=== PATIENT | female | born 1990 | race African-American/Black ===

== ENCOUNTER 2021-09-20 09:35 | Outpatient (CLI) | payer BC, SELFPAY ==
--- NOTE | ~2021-09-20 | MR_ITS ---
EXAMINATION: MR brain/brain stem wo con EXAM DATE: 09/20/2021 10:11 INDICATION: Generalized headaches 5-9 years. TECHNIQUE: Magnetic resonance imaging (MRI) of the brain/brain stem obtained without contrast. Maria De Jesus al T1, axial diffusion, gradient echo (T2*), T1, T2, FLAIR sequences obtained. There is no prior st udy for comparison. FINDINGS: There are no areas of restricted diffusion to suggest acute infarction. There is no acute hemorrhage seen on the T2*, a hemosiderin sensitive sequence. No intraparenchymal brain mass. The ve ntricles are normal in size. There are no extra-axial collections. Flow voids are seen in the cereb ral arteries on the T2-weighted sequences consistent with their expected patency. The orbits are unr emarkable. Soft tissue is unremarkable. IMPRESSION: 1. Normal brain MRI examination. Reviewed, dictated and finalized at location . [employer]EL[employer]
--- NOTE | ~2021-09-20 | XR_ITS ---
XR lumbar spine 2-3V DATE: 09/20/2021 10:32 INDICATION: Low back pain TECHNIQUE: AP, lateral, coned lateral lumbosacral views COMPARISON: None FINDINGS: There is mild dextroscoliosis of the thoracic spine. There is minimal levoscoliosis of the lumbar spine. No fracture or bone destruction is evident. Included lower thoracic and lumbar pedicles are intact. L umbar and lumbosacral interspaces are well preserved. The sacroiliac joints are intact. IMPRESSION: Minimal levoscoliosis of the lumbar spine Reviewed, dictated and finalized at location B. LEAD
== END 2021-09-20 09:36 ==
PROVIDERS: PCP Emergency Medicine; Visit Provider Emergency Medicine
DX: R51.9 Headache, unspecified (principal); M54.50 Low back pain, unspecified; M41.9 Scoliosis, unspecified
CPT/HCPCS: 70551; 72100

== ENCOUNTER 2022-01-19 16:36 | Observation (INO) | payer BC, SELFPAY ==
--- NOTE | ~2022-01-19 | US_ITS ---
EXAMINATION: US abdomen complete DATE: 01/21/2022 08:01 INDICATION: Acute abdominal pain. TECHNIQUE: Multiple grayscale and Doppler ultrasound images of the abdomen were obtained. COMPARISON: CT abdomen and pelvis 01/19/2022 FINDINGS: The visualized portions of the head, body, and tail of the pancreas are normal. The liver i s normal without focal lesion. There is normal flow in main portal vein. The gallbladder is normal in size. No gallstones or gallbladder wall thickening. There was no sonographic Diaz sign. The common duct is normal and measures 6 mm. The kidneys are normal in size. The spleen is normal in size. Abdo kathy aorta is normal in caliber. Inferior vena cava is normal. IMPRESSION: 1. Normal complete abdomen ultrasound. Reviewed, dictated and finalized at location A.
--- NOTE | ~2022-01-19 | CT_ITS ---
EXAMINATION: CT abdomen pelvis wo con DATE: 01/19/2022 17:37 INDICATION: epigastric pain, elevated lipase TECHNIQUE: Computed tomography (CT) of the abdomen and pelvis was performed without intravenous contr ast. Automated exposure control and iterative reconstruction technique were employed. The dose-length product was 540.03 mGy-cm. COMPARISON: 08/11/2017. FINDINGS: Lower thorax: Unremarkable Liver: Normal. Biliary/Gallbladder: Gallbladder is normal. No bile duct dilation. Pancreas: No mass or duct dilation. Spleen: Normal. Adrenals:No mass. Kidneys: No mass, stone, or hydronephrosis. GI tract: No small or large bowel dilation. Normal appendix. Fluid-filled colon. Mesentery/Peritoneum: No ascites, mass, or free air. Retroperitoneum: No mass. Pelvis: Pelvic organs are within normal limits. Soft Tissues: Soft tissues and body wall unremarkable. Bones: No acute osseous finding. IMPRESSION: Fluid-filled colon, as can be seen with diarrheal illness. Otherwise no acute abdominopelvic process detected. No CT evidence of pancreatitis in this noncontrast examination. Reviewed, dictated and finalized at location K. IMPRESSION: Fluid-filled colon, as can be seen with diarrheal illness. Otherwise no acute a bdominopelvic process detected. No CT evidence of pancreatitis in this noncontr ast examination.
[2022-01-19 16:44] VITALS: BP 121/80; PULSE 80; RESP 16; TEMP 36.1; O2SAT 100
[2022-01-19 17:09] LABS: Basophils Percent Auto 0.3 % (0.2-1.2); Eosinophils Percent Auto 0.1 % (0-4.4); Hematocrit 46.4 % (37.0-47.0); Hemoglobin 14.9 g/dL (12.0-15.0); Immature Granulocyte Absolute 0.02 K/mm3 (0.00-0.031); Immature Granulocyte Percent A 0.3 % (0-0.5); Lymphocytes Absolute Auto 0.48 K/mm3 (0.9-3.2); Lymphocytes Percent Auto 6.3 % (18.3-44.2); Mean Corpuscular HGB Conc 32.1 g/dl (32-36); Mean Corpuscular Volume 90.4 fl (80-100); Monocytes Absolute Auto 0.3 K/mm3 (0.1-0.6); Monocytes Percent Auto 3.3 % (2.6-8.5); Neutrophils Absolute Auto 6.8 K/mm3 (1.3-6.7); Neutrophils Percent Auto 89.7 % (45.5-73.1); Platelet Count Result 375 k/mm3 (150-375); Red Blood Count 5.13 M/mm3 (4.2-5.4); Red Cell Distribution Width 13.1 % (11.5-14.5); White Blood Count 7.6 K/mm3 (4.5-10.0)
[2022-01-19 17:19] LABS: Alanine Aminotransferase 19 U/L (6-35); Albumin Level 5.2 g/dL (3.5-5.1); Alkaline Phosphatase 82 U/L (38-126); Anion Gap 9 mmol/L (8-16); Aspartate Amino Transferase 31 U/L (14-36); Bilirubin,Total 0.4 mg/dL (0.2-1.3); Blood Urea Nitrogen 10 mg/dL (7-17); Calcium 9.4 mg/dL (8.4-10.2); Carbon Dioxide 25 mmol/L (22-30); Chloride 106 mmol/L (98-107); Estimated CRCL calculation 85 ml/min; Estimated Glomerular Filt Rate > 60; Glucose 103 mg/dL (65-110); Lipase 981 U/L (23-300); Potassium 3.9 mmol/L (3.4-5.0); Sodium 140 mmol/L (137-145)
[2022-01-19 17:22] LABS: Appearance Urine Clear (Clear); Bilirubin Urine Negative (Negative); Blood Urine 3+ (Negative); Color Urine Yellow (Yellow); Glucose Urine UA Negative (Negative); Ketones Urine Trace mg/dL (Negative); Leukocyte Esterase Ur Negative LEU/UL (Negative); Nitrate Urine Negative (Negative); Protein Urine 1+ mg/dL (Negative); Specific Grav Ur >= 1.030 (1.001-1.035); Urobilinogen Urine 0.2 mg/dL (<2.0); pH Urine 5.5 (5.0-9.0)
[2022-01-19 17:27] LABS: Add Urine Microscopic? YES; Mucus Urine Few /lpf; Squamous Epithelial Cell Urine Rare /hpf (Few); WBC Urine 0-3 /hpf
--- NOTE | 2022-01-19 17:28 | ED.NAVMDI ---
HPI - Nausea/Vomiting/Diarrhea General Chief complaint: Nausea/Vomiting/Diarrhea Stated complaint: vomiting and diarrhea, abd pain Time Seen by Provider: 01/19/22 16:48 Source: patient Mode of arrival: ambulatory Limitations: no limitations History of Present Illness HPI Narrative: This is a 31 year old female that presents to the ER for epigastric abdominal pain noted today. Associated with nausea and vomiting. Also reports diarrhea. Denies fever. Related Data Home Medications Medication Instructions Recorded Confirmed rttjakj-dlmgxhdjh-uxod tablet tablet PO 02/02/20 docosahexaenoic acid 200 mg mg PO 02/02/20 capsule ( DHA) norethindrone (contraceptive) 0.35 0.35 mg PO DAILY 02/02/20 mg tablet Allergies Allergy/AdvReac Type Severity Reaction Status Date / Time No Known Allergies Allergy Unverified 02/02/20 16:54 Review of Systems Review of Systems: CONSTITUTIONAL: Denies fever GASTROINTESTINAL: Reports abdominal pain, nausea, vomiting, and diarrhea. GENITOURINARY: Denies dysuria All systems reviewed & are unremarkable except as noted in HPI and below PMFSH Past Medical History Medical History (Updated 01/19/22 @ 18:35 by Annita Otto PA-C) PIH ( induced hypertension) Family History Family History Other Depression Diabetes mellitus Hypertension Social History Social History Smoking status: Never smoker Second hand tobacco smoke exposure: No Alcohol intake: never Substance use: never Substance use type: does not use Gender identity (if verbalized by the patient): Female Exam Narrative: GENERAL: Well-appearing, well-nourished, and in no acute distress. HEAD: Normocephalic, atraumatic. EYES: EOMI. CHEST: Clear to auscultation. No respiratory distress. No wheezes rales or rhonchi HEART: Regular rate and rhythm. No murmur heard. Normal peripheral pulses. ABDOMEN: Soft, nondistended, normal active bowel sounds. Mild tenderness to palpation in the epigastrium, without guarding. No CVA tenderness EXTREMITIES: Normal range of motion. No edema. SKIN: Warm, dry, no rash. NEURO: No focal deficits. Alert and oriented x3. PSYCH: Normal mood and affect Course Consultations Consultation #1: Spoke with hospitalist about patient and work-up who accepts admission Date: 01/19/22 Vital Signs Vital signs: Vital Signs Temperature 96.9 F L 01/19/22 16:44 Pulse Rate 80 01/19/22 16:44 Respiratory Rate 16 01/19/22 16:44 Blood Pressure 121/80 01/19/22 16:44 Pulse Oximetry 100 01/19/22 16:44 Oxygen Delivery Room Air 01/19/22 16:44 Temperature 96.9 F L 01/19/22 16:44 Pulse Rate 88 01/19/22 18:29 Respiratory Rate 16 01/19/22 16:44 Blood Pressure 121/79 01/19/22 18:29 Pulse Oximetry 100 01/19/22 16:44 Oxygen Delivery Room Air 01/19/22 16:44 MDM - Nausea/Vomiting/Diarrhea MDM Narrative Medical decision making narrative: Patient presents to the emergency department for epigastric pain, nausea and vomiting. She is afebrile and nontoxic-appearing. Her vitals are stable. CBC and metabolic panel without concerning findings. Lipase is noted to be elevated to 981. UA without evidence of infection. Bedside test is negative. CT scan of the abdomen pelvis does not show any evidence of pancreatitis. Exam was non contrast as there is a current shortage. Patient and family updated on case findings. Patient will be admitted for further management. Spoke with hospitalist about patient and work-up who accepts admission Lab Data Attestation: I reviewed the patient's lab results. Result diagrams: 01/19/22 17:04 01/19/22 17:04 Labs: Lab Results 01/19/22 01/19/22 01/19/22 Range/Units 17:04 17:04 17:15 WBC 7.6 (4.5-10.0) K/mm3 RBC 5.13 (4.2-5.4) M/mm3 Hgb 14.9
[2022-01-19] MEDS: ONDANSETRON INJ 4 MG/2 ML VIAL IV PUSH (17:39)
[2022-01-19] MEDS: SODIUM CHLORIDE 0.9% IV 1,000 ML 999 ML IV CONT (17:40)
[2022-01-19] MEDS: FAMOTIDINE 20 MG/2 ML VIAL IV PUSH (17:40)
[2022-01-19 18:24] VITALS: BP 108/70; PULSE 72
[2022-01-19 18:24] LABS: Influenza A QL RT-PCR Negative (Negative); Influenza B QL RT-PCR Negative (Negative); SARS-CoV-2 RNA PCR Negative
[2022-01-19 18:26] VITALS: BP 113/95; PULSE 75
[2022-01-19 18:29] VITALS: BP 121/79; PULSE 88
[2022-01-19] MEDS: MORPHINE SULFATE (*CRX) 4 MG/ML INJ IV PUSH (18:47)
[2022-01-19 18:48] VITALS: BP 112/75; PULSE 62; RESP 18; O2SAT 99
--- NOTE | 2022-01-19 20:00 | PM.IMHP ---
H&P: HPI History of Present Illness Date/Time: 01/19/22 20:00 Chief Complaint: Abdominal pain and diarrhea. Narrative: This is a very pleasant previously healthy 31-year-old female who presented to the emergency department from home for evaluation of abdominal pain and diarrhea. She has felt more fatigued than usual the last several days and she has been napping in the afternoons which is very unlike her. Last evening after dinner (turkey and bengali rice with ice cream for desert), she developed aching pain in the upper abdomen and periumbilical region. It does not seem to radiate and she gives no aggravating or alleviating factors. She started to feel nauseated around the same time and she has been vomiting and having diarrhea almost every hour. Lipase was elevated at just under 1000 though no findings of pancreatitis were noted on CT although it was a non-contrast study due to a contrast shortage. The colon was fluid filled but no other findings were noted. No one in her family has had similar symptoms and she has no known sick contacts. She also denies recent travel and recent antibiotic use. She denies personal and family history of pancreatitis. She also denies fever, chills, sweats, hematemesis, melena, and hematochezia. No GERD or history of ulcers. Review of Systems Review of Systems: Tweleve systems were reviewed and are negative except for as per HPI. [facility] Past Medical History Medical History (Updated 01/19/22 @ 23:34 by Ely Harris PA-C) induced hypertension Surgical History Surgical History (Updated 01/19/22 @ 23:26 by Ely Harris PA-C) No history of previous surgery Family History Family History Mother Diabetes mellitus Sibling Diabetes mellitus Other Depression Hypertension Social History Social History (Updated 01/19/22 @ 23:27 by Ely Harris PA-C) Social History: The patient lives with her and 2 young children in [place]. 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 No alcohol, tobacco, or illicit substance abuse. She designates her as her surrogate decision maker and she wishes to be a full code. Spiritual care concerns: No Meds Home Medications and Allergies Home Medications Medication Instructions Recorded Confirmed Type xsyudhg-radcvrhre-maid 1 tablet PO DAILY 01/19/22 01/19/22 History lisdexamfetamine 40 mg capsule 40 mg DAILY 01/19/22 01/19/22 History (Seth) Allergies Allergy/AdvReac Type Severity Reaction Status Date / Time No Known Allergies Allergy Unverified 02/02/20 16:54 Vital Signs Vital Signs - 24 hr 01/19/22 16:44 01/19/22 18:24 01/19/22 18:26 Temperature 96.9 F L Pulse Rate 80 72 75 Respiratory Rate 16 Blood Pressure 121/80 108/70 113/95 H Pulse Oximetry 100 Oxygen Delivery Room Air 01/19/22 18:29 01/19/22 18:48 01/19/22 22:00 Temperature 97.2 F L Pulse Rate 88 62 57 L Respiratory Rate 18 21 H Blood Pressure 121/79 112/75 127/62 Pulse Oximetry 99 100 Oxygen Delivery Exam Narrative: General: Well-developed female supine in bed in no distress. Weight: 77 kg. BMI: 25.1. HEENT: Normocephalic, atraumatic. PERRL, EOMI. Sclerae anicteric. Tacky mucous membranes. Neck: Supple. Respiratory: Lungs are clear to auscultation bilaterally. Cardiovascular: Regular rate and rhythm with S1-S2. Gastrointestinal: Abdomen is soft and nondistended with positive bowel sounds. She is tender to palpation in the left upper quadrant. No guarding or rebound tenderness. Skin: Warm and dry. No rash or lesions on limited exam. Extremities: No cyanosis, clubbing, or edema. Radial and pedal pulses intact. Neurological: Alert. Cranial nerves 2-12 are grossly intact. No gross focal deficits to casual conversation. Psychiatric: Pleasant and cooperative with normal mood and affect. Judgment and insight intact. H&P: Results Labs L
[2022-01-19 20:31] VITALS: BMI 25.9
--- NOTE | 2022-01-19 20:39 | ADMGEN ---
This patient, Kezia Rizo, was admitted to 2 Medical Room 260-01. Patient/family oriented to hospital policies and general routines including ID bracelet, bed and alarms, visiting hours, pain management, procedures, bathroom and other care routines, personal items, smoking policy, room service/diet, and visiting hours. Information on how to activate the Rapid Response Team has been discussed. Patient/Family are encouraged to report perceived risks to care and to ask questions if they do not understand what they are told or what they should do.
[2022-01-19 22:00] VITALS: BP 127/62; PULSE 57; RESP 21; TEMP 36.2; O2SAT 100
[2022-01-19 22:03] VITALS: BMI 25.0
[2022-01-19] MEDS: SODIUM CHLORIDE 0.9% IV 1,000 ML 125 ML IV CONT (22:29)
[2022-01-20 05:14] LABS: Hemoglobin 11.9 g/dL (12.0-15.0); Mean Corpuscular HGB Conc 32.2 g/dl (32-36); Mean Corpuscular Hemoglobin 29.1 pg (26-34); Mean Corpuscular Volume 90.5 fl (80-100); Platelet Count Result 289 k/mm3 (150-375); Red Blood Count 4.09 M/mm3 (4.2-5.4); Red Cell Distribution Width 13.1 % (11.5-14.5); White Blood Count 5.2 K/mm3 (4.5-10.0)
[2022-01-20 05:28] LABS: Alanine Aminotransferase 16 U/L (6-35); Albumin Level 3.6 g/dL (3.5-5.1); Alkaline Phosphatase 55 U/L (38-126); Anion Gap 4 mmol/L (8-16); Aspartate Amino Transferase 26 U/L (14-36); Bilirubin,Total 0.3 mg/dL (0.2-1.3); Blood Urea Nitrogen 7 mg/dL (7-17); Calcium 7.7 mg/dL (8.4-10.2); Carbon Dioxide 25 mmol/L (22-30); Chloride 107 mmol/L (98-107); Estimated CRCL calculation 94 ml/min; Estimated Glomerular Filt Rate > 60; Glucose 99 mg/dL (65-110); Lipase 49 U/L (23-300); Magnesium 1.8 mg/dL (1.6-2.3); Potassium 3.2 mmol/L (3.4-5.0); Sodium 136 mmol/L (137-145)
[2022-01-20 06:00] VITALS: BP 102/71; PULSE 66; RESP 21; TEMP 36.6; O2SAT 100
[2022-01-20] MEDS: HYDROmorphone HCL INJ (*CRX) 1 MG/ML SYR IV PUSH (06:45)
[2022-01-20] MEDS: SODIUM CHLORIDE 0.9% IV 1,000 ML 125 ML IV CONT ×2 (06:46→17:11)
[2022-01-20] MEDS: POTASSIUM CHLORIDE 20 MEQ TABLET 40 MEQ PO (07:54)
[2022-01-20] MEDS: ONDANSETRON INJ 4 MG/2 ML VIAL IV PUSH ×3 (08:04→19:59)
--- NOTE | 2022-01-20 08:53 | PM.IMPN ---
Progress Note: A&P Assessment and Plan (1) Pancreatitis: Code(s): K85.90 - Acute pancreatitis without necrosis or infection, unspecified Status: Acute Assessment and Plan: Lipase is elevated at just under 1000 but no evidence of pancreatitis on CT though it was a non-contrast study. Diffuse tenderness to right upper and left upper quadrant. Lipase trended down to WNL patient was able to trial clear liquid diet and advance to full liquid, continue to advance diet as tolerated. continue to provide IV fluid resuscitation. Antiemetics and analgesics as needed. (2) Dehydration: Code(s): E86.0 - Dehydration Status: Acute Assessment and Plan: Secondary to vomiting and diarrhea. Continue IV fluid rehydration. (3) Vomiting and diarrhea: Code(s): R11.10 - Vomiting, unspecified; R19.7 - Diarrhea, unspecified Status: Acute Assessment and Plan: She may very well have a viral gastroenteritis that is causing the mild elevation in lipase. continue with supportive care. No indication for antibiotics at this time. Subjective Date/time seen: 01/20/22 08:53 Interval history: Patient reports that she still has diffuse abdominal pain. Continues to receive aggressive IV fluids and pain medications. Urine output WNL. Heart rate, blood pressure and temperature WNL. Patient does not have a leukocytosis. she currently reports bowel movements have improved. No stool culture obtained by RNs. Patient's potassium was 3.2 this morning. She received 40 mEq of Klor-Con. lipase down trended to 49. Discussed with the patient about possible discharge. She was a bit apprehensive And reported continued diffuse abdominal pain. Discussed trialing full liquid diet and advancing as tolerated Exam Narrative: General: Well-developed female supine in bed in no distress. Weight: 77 kg. BMI: 25.1. HEENT: Normocephalic, atraumatic. PERRL, EOMI. Sclerae anicteric. Tacky mucous membranes. Neck: Supple. Respiratory: Lungs are clear to auscultation bilaterally. Cardiovascular: Regular rate and rhythm with S1-S2. Gastrointestinal: Abdomen is soft and nondistended with positive bowel sounds. mild tenderness with palpation to abdomen, diffuse to the left and right upper quadrant. No guarding or rebound tenderness. Skin: Warm and dry. No rash or lesions on limited exam. Extremities: No cyanosis, clubbing, or edema. Radial and pedal pulses intact. Neurological: Alert. Cranial nerves 2-12 are grossly intact. No gross focal deficits to casual conversation. Psychiatric: Pleasant and cooperative with normal mood and affect. Judgment and insight intact. Objective Data Vital Signs Vital Signs: Vital Signs - 24 hr 01/19/22 16:44 01/19/22 18:24 01/19/22 18:26 Temperature 96.9 F L Pulse Rate 80 72 75 Respiratory Rate 16 Blood Pressure 121/80 108/70 113/95 H Pulse Oximetry 100 Oxygen Delivery Room Air 01/19/22 18:29 01/19/22 18:48 01/19/22 22:00 Temperature 97.2 F L Pulse Rate 88 62 57 L Respiratory Rate 18 21 H Blood Pressure 121/79 112/75 127/62 Pulse Oximetry 99 100 Oxygen Delivery 01/20/22 06:00 Temperature 97.9 F Pulse Rate 66 Respiratory Rate 21 H Blood Pressure 102/71 Pulse Oximetry 100 Oxygen Delivery Intake/Output Intake/Output: Intake & Output 01/17/22 01/18/22 01/19/22 01/20/22 23:59 23:59 23:59 23:59 Intake Total 1100 1250 Output Total 300 Balance 1100 950 Meds/Results Medications: Active Medications Generic Name Dose Route Start Last Admin Trade Name Freq PRN Reason Stop Dose Admin Acetaminophen 1,000 mg in 100 mls @ 400 mls/hr 01/19/22 18:40 01/20/22 02:54 Ofirmev 1,000 Mg Ivpb IVPB 01/20/22 18:39 Infused Q6H PRN Infusion Mild Pain (1-3) or Fever Sodium Chloride 1,000 mls @ 125 mls/hr 01/19/22 18:40 01/20/22 06:46 Normal Saline Iv IV CONT 125 mls/hr .Q8H MARLY Administration Ond
--- NOTE | 2022-01-20 09:09 | PM.DS ---
DS: Admitting Diagnosis Discharge Date 01/20/2022 Admitting Diagnosis Acute pancreatitis without necrosis or infection Acute abdominal pain Intractable nausea and vomiting DS: Discharge Diagnosis Discharge Diagnosis (1) Pancreatitis: Code(s): K85.90 - Acute pancreatitis without necrosis or infection, unspecified Status: Acute Assessment and Plan: Lipase is elevated at just under 1000 but no evidence of pancreatitis on CT though it was a non-contrast study. Diffuse tenderness to right upper and left upper quadrant. Lipase trended down to WNL patient was able to trial clear liquid diet and advance to full liquid, continue to advance diet as tolerated. continue to provide IV fluid resuscitation. Antiemetics and analgesics as needed. (2) Dehydration: Code(s): E86.0 - Dehydration Status: Acute Assessment and Plan: Secondary to vomiting and diarrhea. Continue IV fluid rehydration. (3) Vomiting and diarrhea: Code(s): R11.10 - Vomiting, unspecified; R19.7 - Diarrhea, unspecified Status: Acute Assessment and Plan: She may very well have a viral gastroenteritis that is causing the mild elevation in lipase. continue with supportive care. No indication for antibiotics at this time. DS: Summary Hospital Course Reason for hospitalization: Intractable nausea and vomiting Acute abdominal pain Hospital Course: Patient is a 23-year-old female with a past medical history of -induced hypertension. She presented to [facility] from home for evaluation of acute abdominal pain and diarrhea. Patient has also endorsed feeling fatigued over the last several days and has been napping in the afternoon which she reports is very unlike her. Patient reports that she ate turkey in rice with ice cream for dessert. After the eating that meal she developed an aching pain in her upper abdomen and periumbilical area. The pain was nonradiating with no aggravating or relieving factors. She reported feeling nauseated and began to have episodes of emesis as well as diarrhea. Which prompted her to come to the emergency department. Upon evaluation in the emergency department labs and imaging were obtained. Patient's WBC was 7.6, hemoglobin 14.9, hematocrit 46.4, platelet 375, sodium 140, potassium 3.9, BUN 10, creatinine 0.9 with normal LFTs and a negative UA. Lipase was elevated congested under [address] of the abdomen and pelvis revealed fluid-filled colon as can be seen with diarrheal illness. However no evidence of pancreatitis on the noncontrast examination. Given the patient's clinical presentation significant tenderness to the left upper quadrant she was treated for acute pancreatitis. Patient was able to trial clear liquid diet and advance as tolerated. We continued IV fluid resuscitation with antiemetics and analgesics as needed during her hospitalization. Repeat lipase was 94. Patient reported that she no longer had diarrheal episodes. There was no indication for antibiotics during the patient's hospitalization. She was sent home for self-care and continue oral hydration. Status at Discharge Cognitive/behavioral status at discharge: Alert and oriented x4 Time Spent with Patient Time attestation: Total time spent providing and/or coordinating discharge services: Exam Narrative: General: Well-developed female supine in bed in no distress. Weight: 77 kg. BMI: 25.1. HEENT: Normocephalic, atraumatic. PERRL, EOMI. Sclerae anicteric. Tacky mucous membranes. Neck: Supple. Respiratory: Lungs are clear to auscultation bilaterally. Cardiovascular: Regular rate and rhythm with S1-S2. Gastrointestinal: Abdomen is soft and nondistended with positive bowel sounds. mild tenderness with palpation to abdomen, diffuse to the left and right upper quadrant. No guarding or rebound tenderness. Skin: Warm and dry. No rash or lesions on limited exam. Extremities: No cyanos
--- NOTE | 2022-01-20 11:47 | PM.IMPN ---
Progress Note: A&P Assessment and Plan (1) Pancreatitis: Code(s): K85.90 - Acute pancreatitis without necrosis or infection, unspecified Status: Acute Assessment and Plan: Lipase is elevated at just under 1000 but no evidence of pancreatitis on CT though it was a non-contrast study. Diffuse tenderness to right upper and left upper quadrant. Lipase trended down to WNL patient was able to trial clear liquid diet and advance to full liquid, continue to advance diet as tolerated. continue to provide IV fluid resuscitation. Antiemetics and analgesics as needed. Obtain ultrasound of the abdomen (2) Dehydration: Code(s): E86.0 - Dehydration Status: Acute Assessment and Plan: Secondary to vomiting and diarrhea. Continue IV fluid rehydration. (3) Vomiting and diarrhea: Code(s): R11.10 - Vomiting, unspecified; R19.7 - Diarrhea, unspecified Status: Acute Assessment and Plan: She may very well have a viral gastroenteritis that is causing the mild elevation in lipase. continue with supportive care. No indication for antibiotics at this time. Subjective Date/time seen: 01/20/22 11:47 Patient reported that she was okay for discharge this morning. However apparently the patient was receiving narcotics antiemetics placed on a full liquid diet. Patient was apparently able to eat a full liquid diet but became nauseated afterwards and received IV pain medication. RN called to notify clinician for about the patient questions. When spoke with the patient. She requested an abdomen ultrasound to be performed. This will be ordered. A CT was inconclusive of pancreatitis. Lipase WNL. Patient does not appear to be in acute distress or pain. She was made NPO again and administered antiemetics Review of Systems Review of Systems: All systems reviewed & are unremarkable except as noted in HPI and below Exam Narrative: General: Well-developed female supine in bed in no distress. Weight: 77 kg. BMI: 25.1. HEENT: Normocephalic, atraumatic. PERRL, EOMI. Sclerae anicteric. Tacky mucous membranes. Neck: Supple. Respiratory: Lungs are clear to auscultation bilaterally. Cardiovascular: Regular rate and rhythm with S1-S2. Gastrointestinal: Abdomen is soft and nondistended with positive bowel sounds. mild tenderness with palpation to abdomen, diffuse to the left and right upper quadrant. No guarding or rebound tenderness. Skin: Warm and dry. No rash or lesions on limited exam. Extremities: No cyanosis, clubbing, or edema. Radial and pedal pulses intact. Neurological: Alert. Cranial nerves 2-12 are grossly intact. No gross focal deficits to casual conversation. Psychiatric: Pleasant and cooperative with normal mood and affect. Judgment and insight intact. Objective Data Vital Signs Vital Signs: Vital Signs - 24 hr 01/19/22 16:44 01/19/22 18:24 01/19/22 18:26 Temperature 96.9 F L Pulse Rate 80 72 75 Respiratory Rate 16 Blood Pressure 121/80 108/70 113/95 H Pulse Oximetry 100 Oxygen Delivery Room Air 01/19/22 18:29 01/19/22 18:48 01/19/22 22:00 Temperature 97.2 F L Pulse Rate 88 62 57 L Respiratory Rate 18 21 H Blood Pressure 121/79 112/75 127/62 Pulse Oximetry 99 100 Oxygen Delivery 01/20/22 06:00 Temperature 97.9 F Pulse Rate 66 Respiratory Rate 21 H Blood Pressure 102/71 Pulse Oximetry 100 Oxygen Delivery Intake/Output Intake/Output: Intake & Output 01/17/22 01/18/22 01/19/22 01/20/22 23:59 23:59 23:59 23:59 Intake Total 1100 1550 Output Total 300 Balance 1100 1250 Meds/Results Medications: Active Medications Generic Name Dose Route Start Last Admin Trade Name Freq PRN Reason Stop Dose Admin Acetaminophen 1,000 mg in 100 mls @ 400 mls/hr 01/19/22 18:40 01/20/22 02:54 Ofirmev 1,000 Mg Ivpb IVPB 01/20/22 18:39 Infused Q6H PRN Infusion Mild Pain (1-3) or Fever Sodium Chloride 1,000 mls
[2022-01-20 12:28] LABS: Cholesterol 171 mg/dL (0-200); HDL Direct 51 mg/dL; Triglycerides 43 mg/dL (<150)
[2022-01-20 12:31] LABS: LDL Cholesterol Direct 77 mg/dL
[2022-01-20] MEDS: HYDROmorphone HCL INJ (*CRX) 1 MG/ML SYR 0.5 MG IV PUSH ×2 (12:53→20:02)
[2022-01-20 14:00] VITALS: BP 111/68; PULSE 65; RESP 18; TEMP 36.3; O2SAT 100
[2022-01-20 22:00] VITALS: BP 113/69; PULSE 56; RESP 16; TEMP 36.4; O2SAT 100
[2022-01-21] MEDS: SODIUM CHLORIDE 0.9% IV 1,000 ML 125 ML IV CONT (01:43)
[2022-01-21 06:00] VITALS: BP 92/55; PULSE 63; RESP 16; TEMP 36.6; O2SAT 100
[2022-01-21] MEDS: SODIUM CHLORIDE 0.9% IV 1,000 ML 85 ML IV CONT (09:23)
[2022-01-21] MEDS: POTASSIUM CHLORIDE INJ 40 MEQ in SODIUM CHLORIDE 0.9% IV 500 ML 130 MEQ IVPB (09:44)
--- NOTE | 2022-01-21 13:32 | PM.DS ---
DS: Admitting Diagnosis Discharge Date 01/21/2022 Admitting Diagnosis Pancreatitis DS: Discharge Diagnosis Discharge Diagnosis (1) Pancreatitis: Code(s): K85.90 - Acute pancreatitis without necrosis or infection, unspecified Status: Acute Assessment and Plan: Patient presented with epigastric abdominal pain and tenderness to palpation Lipase was elevated at just under 1000 without evidence of pancreatitis on CT, though it was a non-contrast study. Likely idiopathic pancreatitis. Triglycerides within normal limits. Abdominal ultrasound was unremarkable without evidence of gallstones or gallbladder wall thickening. Patient denies alcohol use. She takes 2 medications daily, neither suspected to contribute to pancreatitis She was rehydrated with IV fluids. Diet was advanced from clear to full liquid and then patient was able to tolerate a low-fat diet which she will continue Lipase trended down to normal limits (2) Dehydration: Code(s): E86.0 - Dehydration Status: Acute Assessment and Plan: Secondary to vomiting and diarrhea. She was adequately rehydrated with IV fluids and was able to tolerate appropriate oral fluid intake (3) Vomiting and diarrhea: Code(s): R11.10 - Vomiting, unspecified; R19.7 - Diarrhea, unspecified Status: Acute Assessment and Plan: Resolved with supportive care No indication for antibiotics Remained afebrile Able to tolerate a low-fat diet DS: Summary Hospital Course Hospital Course: Date of admission: 01/19/2022 Date of discharge: 01/21/2022 Kezia Rizo is a healthy 31-year-old female who presented to the emergency department on 01/19 with complaints of epigastric abdominal pain and diarrhea. On presentation to the ED, her vital signs were stable, CBC and BMP unremarkable, lipase elevated at 981, and CT abdomen/pelvis showed fluid-filled colon with no additional acute process detected. She was admitted to the hospitalist service for further evaluation and management. She was rehydrated with IV fluids and was able to tolerate advancing her diet. Her symptoms resolved and she was feeling significantly improved. She did have some mild lingering epigastric discomfort but reported this was remarkably improved and she felt comfortable with plans for discharge home. She will follow-up with her primary care provider in 1 week for further monitoring. Discussed with the patient worrisome signs and symptoms for which to return. She was discharged in hemodynamically stable condition on 01/21/2022. Status at Discharge Functional status at discharge: independent ambulation Overall status at discharge: patient is progressing back to baseline Time Spent with Patient Time attestation: Total time spent providing and/or coordinating discharge services: 40 minutes Time spent: Greater than 30 minutes Exam Narrative: General: Well-nourished, well-appearing 31-year-old female, sitting up in bed, comfortable, NARD Neuro: awake, alert and oriented x4, speech clear, no focal neuro deficits noted HEENMT: normocephalic, atraumatic, EOMI, sclerae anicteric, moist oral mucosa Respiratory: clear to auscultation bilaterally, nonlabored breathing Cardio: regular rate, regular rhythm with S1-S2 Abdomen: nondistended, normoactive bowel sounds, soft, no epigastric or RUQ tenderness Extremities: no edema, erythema, or tenderness to palpation, DP pulses 2+ bilaterally Skin: no rashes or lesions, warm and dry Psych: appropriate mood and affect, judgment and insight intact DS: Data Imaging Radiologist's impression: ITS Impressions Abdomen/Pelvis CT 01/19/22 17:51 IMPRESSION: Fluid-filled colon, as can be seen with diarrheal illness. Otherwise no acute abdominopelvic process detected. No CT evidence of pancreatitis in this noncontrast examination. Abdomen Ultrasound 01/21/22 08:02 IMPRESSION: 1. Normal complete abdomen ultrasound.
== END 2022-01-21 14:05 | disposition home or self-care (01) ==
LOC: ANHED 18:36 → ANH2MED 18:55
PROVIDERS: Nurse Practitioner Family; Physician Assistant; Admitting Provider Internal Medicine; Emergency Provider Emergency Medicine; PCP Emergency Medicine; Visit Provider Chiropractor
DX: K85.90 Acute pancreatitis without necrosis or infection, unspecified (principal); E86.0 Dehydration; R11.10 Vomiting, unspecified; R19.7 Diarrhea, unspecified; Z20.822 Contact with and (suspected) exposure to COVID-19
CPT/HCPCS: 36415; 74176; 76700; 80053; 80061; 81001; 81025; 83690; 83735; 85025; 85027; 87502; 96361; 96365; 96366; 96374; 96375; 96376; 99285; A9270; C9803; G0378; J0131; J1170; J2270; J2405; J3480; J7030; J7040; U0003; U0005

== ENCOUNTER 2023-02-18 00:47 | Emergency (ER) | payer BC, SELFPAY ==
[2023-02-18 00:55] VITALS: BP 126/82; PULSE 86; RESP 14; TEMP 36.7; O2SAT 100
[2023-02-18 01:31] VITALS: BP 138/88; PULSE 88; RESP 20; TEMP 36.6; O2SAT 100
[2023-02-18 01:54] LABS: Basophils Percent Auto 0.6 % (0.2-1.2); Eosinophils Absolute Auto 0.1 K/mm3 (0-0.3); Eosinophils Percent Auto 1.1 % (0-4.4); Hemoglobin 12.9 g/dL (12.0-15.0); Immature Granulocyte Absolute 0.01 K/mm3 (0.00-0.031); Immature Granulocyte Percent A 0.2 % (0-0.5); Lymphocytes Absolute Auto 2.18 K/mm3 (0.9-3.2); Mean Corpuscular HGB Conc 32.3 g/dl (32-36); Mean Corpuscular Hemoglobin 29.7 pg (26-34); Monocytes Absolute Auto 0.5 K/mm3 (0.1-0.6); Monocytes Percent Auto 7.4 % (2.6-8.5); Neutrophils Absolute Auto 3.8 K/mm3 (1.3-6.7); Neutrophils Percent Auto 57.7 % (45.5-73.1); Platelet Count Result 329 k/mm3 (150-375); Red Blood Count 4.35 M/mm3 (4.2-5.4); Red Cell Distribution Width 13.3 % (11.5-14.5); White Blood Count 6.6 K/mm3 (4.5-10.0)
[2023-02-18 02:18] LABS: Beta HCG Quantitative < 2.39 mIU/ML
[2023-02-18 02:57] LABS: Appearance Urine Clear (Clear); Bacteria Urine None Seen /hpf; Bilirubin Urine Negative (Negative); Blood Urine Trace (Negative); Color Urine Yellow (Yellow); Glucose Urine UA Negative (Negative); Ketones Urine Negative (Negative); Leukocyte Esterase Ur Negative LEU/UL (Negative); Nitrate Urine Negative (Negative); Non Pathogenic Casts 0-2; Protein Urine Negative (Negative); RBC Urine 0-2 /hpf (0-2); Specific Grav Ur 1.007 (1.001-1.035); Squamous Epithelial Cell Urine None seen /hpf (Few); Urobilinogen Urine 0.2 mg/dL (<2.0); WBC Urine 0-5 /hpf; pH Urine 5.5 (5.0-9.0)
[2023-02-18 03:03] LABS: Add Urine Microscopic? YES
--- NOTE | 2023-02-18 03:06 | ED.GENADULT ---
HPI - General Adult General Chief complaint: [employer] Stated complaint: vaginal bleeding Time Seen by Provider: 02/18/23 02:01 History of Present Illness HPI narrative: Patient a 32-year-old female who presents emergency department with chief complaint of vaginal bleeding. Patient reports that she had positive test at home and reports that she was to see PRACTICE PHYSICIAN at [facility]. Patient reports she had a lot of cramping this evening and has had mild bleeding but has not saturated a pad yet at home. Related Data Home Medications Medication Instructions Recorded Confirmed [id number] 1 tablet PO DAILY 01/19/22 01/19/22 lisdexamfetamine 40 mg capsule 40 mg DAILY 01/19/22 01/19/22 (Vyvanse) Allergies Allergy/AdvReac Type Severity Reaction Status Date / Time No Known Allergies Allergy Unverified 05/15/22 09:05 Review of Systems Review of Systems: A 10 system review of systems was completed on the patient and is negative except for what is stated in the HPI. Nursing and ancillary documentation was reviewed. [facility] Past Medical History Medical History induced hypertension Surgical History Surgical History No history of previous surgery Family History Family History Mother Diabetes mellitus Sibling Diabetes mellitus Other Depression Hypertension Social History Social History Social History: The patient lives with her and 2 young children in [place]. 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 No alcohol, tobacco, or illicit substance abuse. She designates her as her surrogate decision maker and she wishes to be a full code. Living arrangements: with family Occupation/Education: occupation Spiritual care concerns: No Exam Narrative: GENERAL: Well-appearing, well-nourished, and in no acute distress. HEAD: Normocephalic, atraumatic. EYES: PERRLA and EOMI. ENT: Nares clear, no rhinorrhea or epistaxis. Mucous membranes moist. NECK: Supple. CHEST: Clear to auscultation. No respiratory distress. HEART: Regular rate and rhythm. No murmur heard. Normal peripheral pulses. ABDOMEN: Soft, nontender, nondistended, normal active bowel sounds. EXTREMITIES: Normal range of motion. No edema. SKIN: Warm, dry, no rash. NEURO: No focal deficits. Alert and oriented x3. PSYCH: Normal mood and affect. Course Vital Signs Vital signs: Vital Signs Temperature 36.7 C 02/18/23 00:55 Pulse Rate 86 02/18/23 00:55 Respiratory Rate 14 02/18/23 00:55 Blood Pressure 126/82 02/18/23 00:55 Pulse Oximetry 100 02/18/23 00:55 Oxygen Delivery Room Air 02/18/23 00:55 Temperature 36.6 C 02/18/23 01:31 Pulse Rate 88 02/18/23 01:31 Respiratory Rate 20 02/18/23 01:31 Blood Pressure 138/88 02/18/23 01:31 Pulse Oximetry 100 02/18/23 01:31 Oxygen Delivery Room Air 02/18/23 01:31 Medical Decision Making MDM Narrative Medical decision making narrative: Demential diagnosis includes menses, threatened miscarriage, ectopic Laboratory studies were obtained the patient showed a normal CBC with a white count of 6.6 hemoglobin is 12.9 urinalysis showed no evidence of UTI urine test was negative Blood type was O+ A quantitative hCG was less than 2.39 this is a negative quantitative hCG Vital Signs Vital Signs: Vital Signs Temperature 36.7 C 02/18/23 00:55 Pulse Rate 86 02/18/23 00:55 Respiratory Rate 14 02/18/23 00:55 Blood Pressure 126/82 02/18/23 00:55 Pulse Oximetry 100 02/18/23 00:55 Oxygen Delivery Room Air 02/18/23 00:55 Temperature 36.6 C 02/18/23 01:31 Pulse Rate 88 02/18/23 01:31 Respiratory Rate 20 02/18/23 01:31 Blood Pre
== END 2023-02-18 03:18 | disposition home or self-care (01) ==
PROVIDERS: Emergency Provider Emergency Medicine; PCP Emergency Medicine
DX: N93.9 Abnormal uterine and vaginal bleeding, unspecified (principal)
CPT/HCPCS: 36415; 81001; 81025; 84702; 85025; 85461; 86850; 86900; 86901; 99284

== ENCOUNTER 2023-04-10 08:11 | Outpatient (CLI) | payer BC, SELFPAY ==
--- NOTE | ~2023-04-10 | MR_ITS ---
MRI of the lumbar spine Clinical History: Back pain Technique: Axial T2-weighted images, and sagittal T1-weighted, T2-weighted, and T2 fat-sat images wer e acquired. Findings: There is no fracture or subluxation of the lumbar spine. Vertebral bodies maintain normal h eight and alignment. No suspicious bone marrow signal abnormality seen. There is no significant disc bulge or herniation at any lumbar level. No spinal canal stenosis at any lumbar level. There is mild bilateral neural foraminal narrowing at L5-S1. Remaining neural foramina are preserved. There are mild facet joint degenerative changes in the lumbar spine. Paravertebral soft tissues are unremarkable. Impression: Mild degenerative spondylosis, as above, with mild bilateral neural foraminal narrowing at L5-S1. Reviewed, dictated and finalized at location . Impression: Mild degenerative spondylosis, as above, with mild bilateral neural foraminal n arrowing at L5-S1.
== END 2023-04-10 08:12 ==
PROVIDERS: PCP Emergency Medicine; Visit Provider Emergency Medicine
DX: M54.41 Lumbago with sciatica, right side (principal); M47.896 Other spondylosis, lumbar region
CPT/HCPCS: 72148